=== PATIENT | female | born 1990 | race Caucasian/White ===

== ENCOUNTER → 2017-05-04 | Outpatient (CLI) | payer BC ==
[2017-05-04 16:35] LABS: URINE APPEARANCE CLOUDY (CLEAR); URINE BILIRUBIN NEG (NEG); URINE COLOR YELLOW; URINE EPITHELIAL CELL AUTO >30 /lpf (0-5); URINE NITRITE NEG (NEG); URINE SPECIFIC GRAVITY 1.023 (1.000-1.030); UROBILINOGEN NEG (NEG)
[2017-05-04 16:37] LABS: MANUAL MICROSCOPIC REQUIRED? NO; REVIEW REQ? NO
[2017-05-09 00:20] LABS: CHLAMYDIA TRACH RNA*** NOT DETECTED (NOT DETECTED); GC (NEIS GONORRHOEAE)RNA** NOT DETECTED (NOT DETECTED); TRICHOMONAS VAGINALIS RNA** NOT DETECTED (NOT DETECTED)
== END | disposition home or self-care (01) ==
LOC: C.LABSPEC 15:52
PROVIDERS: ATTEND Obstetrics & Gynecology
DX: N39.0 Urinary tract infection, site not specified (principal)

== ENCOUNTER → 2017-06-06 | Outpatient (CLI) | payer BC | END | disposition home or self-care (01) | LOC: C.PATHSPEC 17:09 | PROVIDERS: ATTEND Nurse Practitioner Adult Health | DX: N39.0 Urinary tract infection, site not specified (principal); R10.2 Pelvic and perineal pain ==

== ENCOUNTER → 2017-06-19 | Outpatient (CLI) | payer BC | END | disposition home or self-care (01) | LOC: C.LABSPEC 16:56 | PROVIDERS: ATTEND Nurse Practitioner Adult Health | DX: N39.0 Urinary tract infection, site not specified (principal); R10.2 Pelvic and perineal pain; N76.0 Acute vaginitis; B37.3 Candidiasis of vulva and vagina ==

== ENCOUNTER → 2017-06-27 | Outpatient (CLI) | payer BC ==
[2017-06-27 16:58] LABS: URINE APPEARANCE CLEAR (CLEAR); URINE BILIRUBIN NEG (NEG); URINE COLOR YELLOW; URINE NITRITE NEG (NEG); URINE SPECIFIC GRAVITY 1.013 (1.000-1.030); UROBILINOGEN NEG (NEG)
[2017-06-27 17:12] LABS: MANUAL MICROSCOPIC REQUIRED? NO; REVIEW REQ? NO
== END | disposition home or self-care (01) ==
LOC: C.LABSPEC 16:26
PROVIDERS: ATTEND Physician Assistant
DX: R39.9 Unspecified symptoms and signs involving the genitourinary system (principal)

== ENCOUNTER → 2017-07-07 | Outpatient (CLI) | payer BC ==
[~2017-07-07] MED LIST: OPTIRAY 320 IV PRN
--- NOTE | 2017-07-07 10:03 | DIAGNOSTIC IMAGING REPORT ---
CT ABD/PELVIS COMBO CLINICAL HISTORY: BLADDER PAIN, FEMALE PELVIC PAIN, RECURRENT UTI COMPARISON STUDY: None. TECHNIQUE: Unenhanced images were obtained through the abdomen and pelvis. The patient was then injected with 50 cc Optiray 320. After 5 minute delay, the patient is rescanned in a dynamic helical fashion during intravenous administration of 43 cc of Optiray 320. A dose lowering technique was utilized adhering to the principles of ALARA. CT DOSE: 801.96 mGycm FINDINGS: Lower chest: The heart is normal in size and configuration, without pericardial effusion. The lung bases and pleural spaces are clear. Liver: The contrast-enhanced liver is normal in size, contour, and attenuation. There is no intrahepatic biliary ductal dilatation. The hepatic veins and portal veins are patent. Gallbladder: Unremarkable. Spleen: Normal in size and attenuation. Pancreas: Unremarkable. Adrenal glands: Unremarkable. Kidneys: There is a 3 mm left renal calcification. This difficult to determine with this is cortical or related to a calculus. There is no hydronephrosis. No ureteral or bladder calculi are visualized. No renal masses are visualized. No collecting system lesions are visualized. No ureteral lesions are delineated. Bowel: There are no transition zones indicate bowel obstruction. As the appendix is air-filled normal appendix appears normal. There is no acute diverticulitis. Peritoneum: There is minimal free pelvic fluid, likely physiologic. There is no free air. Vasculature: The abdominal aorta is normal in course and caliber. Adenopathy: None. Pelvic viscera: There is mild prominence of the lower endometrial stripe. No bladder abnormalities are visualized. Skeletal structures: No destructive osseous lesions are seen. IMPRESSION: 1. 3 mm left renal calcification possibly cortical 2. No renal masses identified 3. No ureteral or bladder calculi identified 4. No acute inflammatory changes. Electronically signed by: Alex Eubanks M.D. 07/07/2017 10:02 AM Dictated Date/Time: 07/07/2017 9:49 AM
== END | disposition home or self-care (01) ==
LOC: C.CTS 09:12
PROVIDERS: ATTEND Nurse Practitioner Adult Health
DX: N39.0 Urinary tract infection, site not specified (principal); R10.2 Pelvic and perineal pain; R39.89 Other symptoms and signs involving the genitourinary system

== ENCOUNTER → 2018-01-05 | Outpatient (CLI) | payer OTHER | END | disposition home or self-care (01) | LOC: C.LABSPEC 10:45 | PROVIDERS: ATTEND Physician Assistant | DX: R10.2 Pelvic and perineal pain (principal) ==

== ENCOUNTER → 2018-06-04 | Outpatient (CLI) | payer OTHER | END | disposition home or self-care (01) | LOC: C.LABSPEC 13:08 | PROVIDERS: ATTEND Obstetrics & Gynecology | DX: R10.2 Pelvic and perineal pain (principal) ==

== ENCOUNTER 2021-05-07 07:30 | Inpatient (IN) ==
--- NOTE | 2021-05-05 10:56 | Anesthesiology Consultation ---
Date of Service May 05, 2021 Assessment & Plan (1) Encounter for pre-operative examination: COVID screening: Per assessment on 05/05: Travel screen negative, no known COVID- 19 positive contacts or current COVID-19 related symptoms. Surgeon arranging preop COVID testing. Awaiting results. Chart Review Chart Review: phlebotomy support tech initiated History Surgery Operation Date: 05/07/21 09:30 Proposed Procedures p Section in LD - Emi White MD Height/Weight Height: 5 ft 3 in Weight: 68.039 kg Allergies Allergy/AdvReac Type Severity Reaction Status Date / Time No Known Drug Allergies Allergy Verified 05/05/21 08:30 Medications Home Medications Medication Instructions Recorded Confirmed Last Taken ferrous sulfate 325 mg PO QAM 05/05/21 05/05/21 Unknown fluticasone propionate [Flonase 1 spray INTNAS DAILY PRN 05/05/21 05/05/21 Unknown Allergy Relief] prenat.vits,giovanni,zgz-pswr-himec 1 tab PO QAM 05/05/21 05/05/21 Unknown Past Medical History Medical History Allergic rhinitis Anxiety Cardiac murmur Due to FHx of bicuspid valve was evaluated by [facility] cardio in 2018. Quick-look echo showed normal AV with trivial AI. Cholelithiases GERD (gastroesophageal reflux disease) Hx Low grade squamous intraepithelial lesion (LGSIL) on cervical Pap smear Past Family History Family History Unknown No problems noted. Father Pure hypercholesterolemia Hypertension Brother Bicuspid aortic valve Grandmother (Maternal) No problems noted. Grandmother Diabetes Grandfather Diabetes Uncle Diabetes Mother Pure hypercholesterolemia Thyroid disease Aunt Twins, both liveborn Other No family history of adverse response to anesthesia Denies family history of Ovarian cancer Prostate cancer Myocardial infarction Breast cancer Colorectal cancer Past Surgical History Surgical History History of dilatation and curettage D&E History of reduction of closed fracture right arm, under anesthesia History of wisdom tooth extraction Hx laparoscopic cholecystectomy (04/09/20) Laparoscopic Cholecystectomy with Cholangiogram Dr. Dempsey 04/09/20 Status post laparoscopic surgery excision endometriotic tissue Cul-de-sac Social History Smoking Status: Never smoker Do You Dip or Chew Tobacco: No Hx Alcohol Use: Yes Alcohol type: beer alcohol intake frequency: a few times a month Alcohol Intake Frequency Comment: WHEN NOT Hx Substance Use: No substance use type: does not use
[~2021-05-07 07:30] MED LIST changes: +CITRIC ACID/SODIUM CITRATE 15 ML UDC PO SCH; -OPTIRAY 320 IV PRN; +ceFAZolin 2000MG 2,000 MG/15 ML SYR IV SCH
[2021-05-07] MEDS ORDERED: LACTATED RINGER'S 1,000 ML IV SCH ×2 (08:00→08:54)
[2021-05-07 08:38] LABS: Basophils # (auto) 0.02 K/uL (0-0.2); Basophils % (auto) 0.2 %; Eosinophils # (auto) 0.08 K/uL (0-0.5); Eosinophils % (auto) 0.6 %; Hematocrit (blood only) 34.7 % (37-47); Hemoglobin 11.3 g/dL (12.0-16.0); Immature Granulocytes # (auto) 0.05 K/uL (0.00-0.02); Immature Granulocytes % (auto) 0.4 %; Lymphocytes % (auto) 19.4 %; Mean Corpuscular Hgb Conc 32.6 g/dL (32-36); Mean Platelet Volume 10.1 fL (7.4-10.4); Monocytes # (auto) 0.87 K/uL (0.11-0.59); Monocytes % (auto) 6.8 %; Neutrophils # (auto) 9.36 K/uL (1.4-6.5); Neutrophils % (auto) 72.6 %; Platelet Count 257 K/uL (130-400); RDW Coefficient of Variation 13.4 % (11.5-14.5); RDW Standard Deviation 44.7 fL (36.4-46.3); Red Blood Count 3.77 M/uL (4.2-5.4); White Blood Count 12.88 K/uL (4.8-10.8)
[2021-05-07] MEDS ORDERED: OXYTOCIN 10 UNITS/ML VIAL ONE (09:09)
[2021-05-07] MEDS ORDERED: MoRPHine SULFATE PF 1 MG/ML 10 ML AMP/VIAL ONE (09:10)
[2021-05-07] MEDS ORDERED: fentaNYL citrate 100 MCG/2 ML VIAL ONE (09:10)
--- NOTE | 2021-05-07 09:21 | History & Physical Bridge Note ---
Date of Service May 07, 2021 History & Physical Bridge Note I have examined the patient, reviewed the History & Physical and in the interval since the performance of the History & Physical I have noted the following changes of clinical significance: no changes noted
[2021-05-07] MEDS ORDERED: MoRPHine SULFATE 2 MG/ML CARP IV PRN (09:24)
[2021-05-07] MEDS ORDERED: ONDANSETRON INJ 2 MG/ML 2 ML VIAL IV PRN (09:24)
[2021-05-07] MEDS ORDERED: PROMETHAZINE HCL 12.5 MG in SODIUM CHLORIDE 0.9% 50 ML IV PRN (09:24)
[2021-05-07] MEDS ORDERED: diphenhydrAMINE 50 MG/ML VIAL IV PRN (09:24)
[2021-05-07] MEDS ORDERED: MoRPHine SULFATE PF 1 MG/ML 10 ML AMP/VIAL INT SPINAL ONE (09:24)
[2021-05-07] MEDS ORDERED: NALOXONE HCL 0.4 MG/1 ML VIAL/CARP IV PRN (09:24)
[2021-05-07] MEDS ORDERED: NALOXONE HCL 0.08 MG in SYRINGE 1.8 ML IV PRN (09:24)
[2021-05-07] MEDS ORDERED: NALOXONE HCL 1 MG in SODIUM CHLORIDE 0.9% 1000ML 1,000 ML IV PRN (09:24)
[2021-05-07] MEDS ORDERED: ePHEDrine sulfate 50 MG/ML AMP IV PRN (09:24)
[2021-05-07] MEDS ORDERED: LACTATED RINGER'S 500 ML IV PRN (09:24)
--- NOTE | 2021-05-07 09:27 | Communication Note ---
Date of Service: May 07, 2021 Patient scanned at bedside, still breech, desires CSec as planned.
[2021-05-07] MEDS ORDERED: SODIUM CHLORIDE 0.9% 1000ML 1,000 ML IV SCH (09:30)
[2021-05-07] MEDS ORDERED: DC INTRASPINAL MORPHINE SCH (09:30)
[2021-05-07] MEDS ORDERED: NO NARCOTICS OR SEDATIVES SCH (09:30)
[2021-05-07 10:44] LABS: Base Excess Cord Arterial Bld 1.4 mEq/L (-9-1.8); CO2 Cord Arterial Blood 53 mmHg (39.1-73.5); Cord Venous Blood HCO3 26 mmol/L (18.4-26.8); Cord Venous Blood PCO2 44 mmHg (30.4-57.2); Cord Venous Blood PO2 32 mmHg (14.1-43.3); Cord Venous Blood pH 7.39 (7.20-7.44); HCO3 Cord Arterial Blood 28 mmol/L (19.7-28.5); PO2 Cord Arterial Blood 17 mmHg (4.1-31.7); pH Cord Arterial Blood 7.34 (7.1-7.38)
[2021-05-07 10:45] LABS: Oxygen Sat Cord Arterial Blood < 60.0 % (<60)
[2021-05-07] MEDS ORDERED: PHENYLEPHRINE 100MCG/ML 5ML SYR ONE (10:50)
--- NOTE | 2021-05-07 10:50 | Operative Report ---
PG Post Operative Report Pre & Post Diagnosis Operation Date: 05/07/21 09:30 Pre-Op Diagnosis: Term SIUP with Breech presentation Post-Op Diagnosis: Same I identified the patient and participated in the time-out.: Yes Procedure Operation Date: 05/07/21 09:30 Primary low transverse section Surgeon Emi White MD Graphic Design Specialist BELLE [place] Estimated Blood Loss 500 Findings Consistent with Post-Op Diagnosis Specimens Placenta, cord gases, cord blood Anesthesia Type Spinal Complications none Disposition Accompanied Patient To Recovery: Yes Disposition: L&D Description of Procedure The patient was brought to the operating room and placed on the table in the supine position with a leftward tilt, then prepped and draped in standard sterile fashion. A hard time out was taken prior to proceeding. A pfannensteil incision was created sharply and carried down to the fascia using bovie electrocautery. The fascia was nicked and then extended using perales scissors. The edges of the fascia were grasped with Mahsa clamps and elevated, then sharply and bluntly dissected off the underlying rectus. The midline of the rectus was identified and bluntly . The peritoneum was bluntly entered, and this entry was extended using pressure from the surgeon's hands. The bladder retractor was placed and the lower uterine segment was examined and found to be well developed. A bladder flap was created and the retractor was replaced behind this flap to protect the bladder. A transverse lower uterine incision was then created, with final entry to the uterine cavity made in a blunt manner with the surgeon's finger. Clear amniotic fluid was encountered. The feet were grasped and elevated to the incision and delivered. The was delivered to the mid-abdomen and rotated sacrum-anterior and wrapped in a blue towel, then elevated gently to allow physiologic sweep of each arm, then the head was delivered with neck in flexion. The cord was doubly clamped and cut, then the was taken to the warmer for controller operations and hr manager care. A segment of cord was isolated for cord blood gases. The placenta was manually extracted, then the uterus was gently exteriorized from the maternal abdomen. The cavity was cleared of clot and debris using a dry lap sponge. The angles of the incision were identified with allis clamps, and the hysterotomy was then repaired in running locked fashion using 0-vicryl suture, followed by a second imbricating layer. The tubes and ovaries were examined and found to be normal bilaterally. The posterior gutter was irrigated and cleared of clot and debris. The uterus was then gently re-internalized to the abdomen. Lateral gutters were cleared of clot and debris using a damp lap sponge, and a final exam of the hysterotomy revealed good hemostasis. The rectus muscles were allowed to reapproximate naturally. The angle of the fascia was grasped with a Mahsa clamp and the fascia was then repaired in running non-locked fashion with 1- vicryl suture. At the completion of repair, the fascia was examined and found to be free of any defect. The subcutaneous tissue was copiously irrigated and then reapproximated using 3-0 chromic. The skin was then closed using 4-0 monocryl in a running subcuticular fashion and a dermabond dressing was applied. The pringle was noted to be draining clear yellow urine as the patient was transferred back to her recovery room. I attest to the content of the Intraoperative Record and any orders documented therein. Any exceptions are noted below.
[2021-05-07] MEDS ORDERED: OXYTOCIN 30 UNITS in LACTATED RINGER'S 1,000 ML IV SCH (11:11)
[2021-05-07] MEDS ORDERED: BENZOCAINE 20% AER SPR 82.5 GM CAN EXT PRN (11:11)
[2021-05-07] MEDS ORDERED: DIPHTHERIA/TETANUS/PERTUSSIS 0.5 ML SYR/VIAL IM ONE (11:11)
[2021-05-07] MEDS ORDERED: MAGNESIUM HYDROXIDE SUSP 30 ML UDC PO PRN (11:11)
[2021-05-07] MEDS ORDERED: HYDROCORTISONE ACETATE 25 MG SUPP PR PRN (11:11)
[2021-05-07] MEDS ORDERED: SUPERCREAM 0.870% 15 GM JAR EXT PRN (11:11)
[2021-05-07] MEDS ORDERED: SENNA 8.6 MG TAB PO PRN (11:11)
--- NOTE | 2021-05-07 12:16 | Anesthesiology Progress Note ---
Date of Service May 07, 2021 Anesthesia Post Procedure Vital Signs Vital Signs: Temp Pulse Resp BP Pulse Ox 05/07/21 12:10 74 100 05/07/21 12:05 68 100 05/07/21 12:00 68 100 05/07/21 11:56 74 123/70 05/07/21 11:55 76 20 100 05/07/21 11:50 72 100 05/07/21 11:46 67 120/68 05/07/21 11:45 70 20 100 05/07/21 11:40 69 100 05/07/21 11:36 73 114/67 05/07/21 11:35 79 20 99 05/07/21 11:30 64 100 05/07/21 11:26 64 118/66 05/07/21 11:25 74 18 100 05/07/21 11:24 72 88 L 05/07/21 11:20 67 99 05/07/21 11:16 62 114/61 05/07/21 11:15 72 20 100 05/07/21 11:10 82 100 05/07/21 11:07 66 114/56 L 05/07/21 11:05 70 20 97 05/07/21 11:00 66 100 05/07/21 10:56 65 114/57 L 05/07/21 10:55 36.5 C 69 20 100 05/07/21 07:50 36.6 C 74 20 128/82 Transfer of Care Handoff Completed per policy Notes Mental Status: alert / awake / arousable and participated in evaluation Patient Amnestic to Procedure: Yes Nausea / Vomiting: adequately controlled Pain: adequately controlled Airway Patency, RR, SpO2: stable & adequate BP & HR: stable & adequate Hydration State: stable & adequate Anesthetic Complications: no major complications apparent and Pt Satisfied with anesthetic care
[2021-05-07] MEDS: SIMETHICONE 80 MG CHEW PO SCH ×3 (13:46→20:14)
[2021-05-07] MEDS: KETOROLAC 30 MG/ML VIAL IV PRN (13:46)
[2021-05-07] MEDS: DOCUSATE SODIUM 100 MG CAP PO SCH (20:14)
[2021-05-08] MEDS: KETOROLAC 30 MG/ML VIAL IV PRN (03:22)
[2021-05-08] MEDS ORDERED: diphenhydrAMINE Capsule 25 MG CAP PO PRN (03:24)
[2021-05-08] MEDS ORDERED: diphenhydrAMINE 50 MG/ML VIAL IV PRN (03:24)
[2021-05-08] MEDS ORDERED: ONDANSETRON INJ 2 MG/ML 2 ML VIAL IV PRN (03:24)
[2021-05-08] MEDS ORDERED: PROMETHAZINE HCL 25 MG in SODIUM CHLORIDE 0.9% 50 ML IV PRN (03:24)
[2021-05-08] MEDS ORDERED: KETOROLAC 30 MG/ML VIAL IV PRN (03:24)
[2021-05-08] MEDS ORDERED: MEPERIDINE HCL 50 MG/ML CARP IV PRN (03:24)
[2021-05-08 06:05] LABS: Basophils # (auto) 0.02 K/uL (0-0.2); Basophils % (auto) 0.2 %; Eosinophils # (auto) 0.07 K/uL (0-0.5); Eosinophils % (auto) 0.6 %; Hematocrit (blood only) 24.6 % (37-47); Immature Granulocytes # (auto) 0.03 K/uL (0.00-0.02); Immature Granulocytes % (auto) 0.3 %; Lymphocytes # (auto) 2.02 K/uL (1.2-3.4); Lymphocytes % (auto) 17.4 %; Mean Corpuscular Hemoglobin 29.9 pg (25-34); Mean Corpuscular Hgb Conc 32.5 g/dL (32-36); Mean Corpuscular Volume 91.8 fL (80-100); Mean Platelet Volume 9.7 fL (7.4-10.4); Monocytes # (auto) 0.63 K/uL (0.11-0.59); Monocytes % (auto) 5.4 %; Neutrophils # (auto) 8.81 K/uL (1.4-6.5); Neutrophils % (auto) 76.1 %; Platelet Count 194 K/uL (130-400); RDW Coefficient of Variation 13.5 % (11.5-14.5); RDW Standard Deviation 44.9 fL (36.4-46.3); Red Blood Count 2.68 M/uL (4.2-5.4); White Blood Count 11.58 K/uL (4.8-10.8)
--- NOTE | 2021-05-08 07:01 | Obstetrical Progress Note ---
Date of Service May 08, 2021 Assessment & Plan (1) state: Recovering well POD#1 from Cs for breech Subjective Ambulation: ambulating normally Voiding: no voiding problems Passing Gas:: Yes Diet Tolerance:: regular diet Lochia:: Small Feeding Type:: bottle feeding Physical Exam Constitutional WD/WN, vitals as above Eyes PERRL, conjunctivae normal, anicteric sclerae Neck normal visual inspection Respiratory normal respiratory effort and able to speak in complete sentences; no respiratory distress and no labored breathing Cardiovascular Rate/Rhythm: regular rate and regular rhythm Extremities: no edema Chest (Breasts) Chest: normal inspection of chest Gastrointestinal (Abdomen) Inspection/Auscultation: abdomen normal to inspection Soft, postgravid C/D/I incision Psychiatric A+Ox3, euthymic affect Genitourinary OB Exam Abdomen: + fundal height Fundus: + firm and + relation to umbilicus (fundus just below umbilicus); not tender Results & Data ([facility]) Vital Signs (Past 12 Hours) Vital Signs Temp Pulse Resp BP Pulse Ox 05/08/21 03:30 98.1 F 88 18 120/68 95 05/08/21 02:00 18 95 05/08/21 01:00 18 97 05/08/21 00:00 20 97 05/07/21 23:00 20 98 05/07/21 22:52 99.1 F 88 16 114/74 98 05/07/21 22:00 18 97 05/07/21 21:00 18 97 05/07/21 20:00 18 98 05/07/21 19:30 98.4 F 79 18 119/74 97
[2021-05-08] MEDS: SIMETHICONE 80 MG CHEW PO SCH ×3 (08:36→17:33)
[2021-05-08] MEDS: oxyCODONE/ACETAMINOPHEN 5mg/325mg TAB PO PRN ×3 (08:36→22:54)
[2021-05-08] MEDS: DOCUSATE SODIUM 100 MG CAP PO SCH ×2 (08:36→17:33)
[2021-05-08] MEDS: FERROUS SULFATE 325 MG TAB PO SCH (08:36)
[2021-05-08] MEDS: PRENATAL VITAMIN 1 TAB PO SCH (08:36)
[2021-05-08] MEDS: IBUPROFEN 600 MG TAB PO PRN ×4 (08:36→22:54)
[2021-05-09] MEDS: oxyCODONE/ACETAMINOPHEN 5mg/325mg TAB PO PRN ×2 (06:18→11:18)
[2021-05-09] MEDS: IBUPROFEN 600 MG TAB PO PRN ×2 (06:18→11:18)
[2021-05-09 06:49] LABS: Hematocrit (blood only) 23.9 % (37-47); Hemoglobin 7.9 g/dL (12.0-16.0)
[2021-05-09] MEDS: SIMETHICONE 80 MG CHEW PO SCH ×2 (07:34→09:23)
--- NOTE | 2021-05-09 09:04 | Obstetrical Progress Note ---
Date of Service May 09, 2021 Assessment & Plan (1) state: Day 2 following pLTCS. Doing well. Stable for discharge Subjective Ambulation: ambulating normally Voiding: no voiding problems Passing Gas:: Yes Diet Tolerance:: regular diet Lochia:: Moderate Feeding Type:: breast feeding Physical Exam Constitutional WD/WN, vitals as above Respiratory normal respiratory effort; no respiratory distress and no labored breathing Gastrointestinal (Abdomen) Inspection/Auscultation: abdomen normal to inspection; abdomen not distended Percussion/Palpation: abdomen soft; abdomen nontender, no guarding and abdomen not rigid Incision C/D/I Genitourinary OB Exam Abdomen: + fundal height Fundus: + firm and + relation to umbilicus (Below); not tender and not boggy Results & Data ([facility]) Vital Signs (Past 12 Hours) Vital Signs Temp Pulse Resp BP Pulse Ox 05/09/21 07:27 36.6 C 72 18 111/75 100 05/08/21 23:09 36.9 C 78 16 114/67 98
[2021-05-09] MEDS: DOCUSATE SODIUM 100 MG CAP PO SCH (09:23)
[2021-05-09] MEDS: PRENATAL VITAMIN 1 TAB PO SCH (09:23)
[2021-05-09] MEDS: FERROUS SULFATE 325 MG TAB PO SCH (09:23)
--- NOTE | 2021-05-10 14:19 | Discharge Summary ---
Date of Service May 10, 2021 Discharge Data Consultations 05/07/21 07:54 Consult Anesthesiology Stat Procedures Performed Operation Date: 05/07/21 09:30 Actual Procedures p Section in OR #3 - Emi White MD Hospital Course (1) Breech presentation: Patient underwent planned CS for breech presenting fetus. Uncomplicated; see op report for details. Post op course was typical and she was discharged home on POD#2 with 6 week follow up and prn pain medication. Coding Level of Care Code None Diagnoses Breech presentation O32.1XX0
== END 2021-05-09 12:31 | disposition home or self-care (01) | DRG 788 ==
LOC: 4S1 07:39 → EDSTATUS 10:25 → 4S2 13:37